=== PATIENT | male | born 2000 | race African-American/Black ===

== ENCOUNTER 2018-09-03 04:09 | Emergency (ER) | payer BC ==
[~2018-09-03] VITALS: Ht 177.8 cm; Wt 115.7 kg
[2018-09-03] MEDS ORDERED: VENTOLIN HFA 1818 GM INH ×2 (04:30→06:14)
[2018-09-03] MEDS ORDERED: FLOVENT HFA 4444 MCG INH (04:31)
[2018-09-03 06:26] VITALS: BP 134/77
== END 2018-09-03 06:26 | disposition home or self-care (01) ==
LOC: ER 04:09
DX: R06.02 Shortness of breath (principal)

== ENCOUNTER 2018-11-15 22:27 | Emergency (ER) | payer BC ==
[~2018-11-15] VITALS: Ht 177.8 cm; Wt 115.2 kg
[~2018-11-15 22:27] MED LIST: FLOVENT HFA 4444 MCG INH; VENTOLIN HFA 1818 GM INH
[2018-11-16 00:31] VITALS: BP 143/55
== END 2018-11-16 00:40 | disposition home or self-care (01) ==
LOC: ER 22:27
DX: S93.492A Sprain of other ligament of left ankle, initial encounter (principal); J45.909 Unspecified asthma, uncomplicated; X58.XXXA Exposure to other specified factors, initial encounter; Y93.67 Activity, basketball; Y92.89 Other specified places as the place of occurrence of the external cause; Y99.8 Other external cause status

== ENCOUNTER 2019-07-01 21:29 | Emergency (ER) | payer BC ==
[~2019-07-01] VITALS: Ht 177.8 cm; Wt 117.9 kg
[2019-07-01 21:42] VITALS: BP 172/65
[2019-07-01] MEDS ORDERED: MOBIC7.5 MG PO (22:08)
--- NOTE | 2019-07-04 12:33 | EKG ---
[facility] [place] [address] ELECTROCARDIOGRAM REPORT Name: RODRIGO CORBIN Room #: DEP [facility]#: [id number] Admission: 07/01/19 Attend Phys: Discharge: 07/01/19 Date of : 89 Report #: [id number] THIS REPORT FOR: cc: Vladislav Edwards,Steven Heck MD [facility] ~ THIS REPORT FOR: //name// [facility] ED Test Date: 2019-07-01 Test Time: 21:39:45 Pat Name: RODRIGO CORBIN Department: Room: Gender: Reference Library Assistant: NIRAV : 2000 Requested By: Aby Cox Order Number: [id number] MD: Steven Chaparro Measurements Intervals [place] Rate: 67 P: 62 MN: 150 QRS: 54 QRSD: 94 T: 1 QT: 376 QTc: 397 Interpretive Statements Sinus rhythm Early repolarization No previous ECG available for comparison Electronically Signed On 07-02-2019 9:38:31 CERTIFIED PHYSICIAN ASSISTANT by Steven Chaparro [email or web address] <ELECTRONICALLY SIGNED> By: Steven Chaparro MD, [facility] 07/02/1940 38 38 Steven Chaparro MD, [facility] /EPI
== END 2019-07-01 22:31 | disposition home or self-care (01) ==
LOC: ER 21:29
DX: R09.1 Pleurisy (principal); J45.909 Unspecified asthma, uncomplicated

== ENCOUNTER 2019-08-03 21:41 | Emergency (ER) | payer BC ==
[~2019-08-03] VITALS: Ht 177.8 cm; Wt 127.0 kg
[~2019-08-03 21:41] MED LIST changes: +MOBIC7.5 MG PO
[2019-08-03] MEDS ORDERED: PREDNISONE 20 M20 MG PO (22:29)
[2019-08-03] MEDS ORDERED: IBUPROFEN 800800 M1 PO (22:29)
[2019-08-03 22:37] VITALS: BP 150/79
== END 2019-08-03 22:55 | disposition home or self-care (01) ==
LOC: ER 21:41
DX: J11.1 Influenza due to unidentified influenza virus with other respiratory manifestations (principal); J45.909 Unspecified asthma, uncomplicated

== ENCOUNTER 2020-02-01 00:12 | Emergency (ER) | payer BC ==
[~2020-02-01] VITALS: Ht 177.8 cm; Wt 127.0 kg
[~2020-02-01 00:12] MED LIST changes: +IBUPROFEN 800800 M1 PO; +PREDNISONE 20 M20 MG PO
[2020-02-01] MEDS ORDERED: PREDNISONE 20 M20 MG PO (01:10)
[2020-02-01 01:14] VITALS: BP 151/75
== END 2020-02-01 01:14 | disposition home or self-care (01) ==
LOC: ER 00:12
DX: J45.901 Unspecified asthma with (acute) exacerbation (principal); Z79.899 Other long term (current) drug therapy; Z91.013 Allergy to seafood; Z91.09 Other allergy status, other than to drugs and biological substances

== ENCOUNTER 2020-09-11 03:47 | Emergency (ER) | payer BC ==
[~2020-09-11] VITALS: Ht 177.8 cm; Wt 127.0 kg
[2020-09-11 03:49] VITALS: BP 186/78
[2020-09-11] MEDS ORDERED: SINGULAIR 10 MG10 M1 PO (03:54)
[2020-09-11] MEDS ORDERED: PROAIR HFA8.5 GM INH (03:54)
[2020-09-11] MEDS ORDERED: PREDNISONE50 MG PO (04:05)
[2020-09-12] MEDS ORDERED: PROAIR HFA8.5 GM INH (11:36)
== END 2020-09-11 04:22 | disposition home or self-care (01) ==
LOC: ER 03:47
DX: J45.901 Unspecified asthma with (acute) exacerbation (principal); R06.00 Dyspnea, unspecified; Z91.013 Allergy to seafood

== ENCOUNTER 2020-09-12 11:02 | Emergency (ER) | payer BC ==
[~2020-09-12] VITALS: Ht 177.8 cm; Wt 127.0 kg
[~2020-09-12 11:02] MED LIST changes: +PREDNISONE50 MG PO; +PROAIR HFA8.5 GM INH; +SINGULAIR 10 MG10 M1 PO
[2020-09-12] MEDS ORDERED: PROAIR HFA8.5 GM INH (11:36)
[2020-09-12 12:04] VITALS: BP 153/58
== END 2020-09-12 12:04 | disposition home or self-care (01) ==
LOC: ER 11:02
DX: J45.901 Unspecified asthma with (acute) exacerbation (principal); Z79.899 Other long term (current) drug therapy; Z91.013 Allergy to seafood; Z91.09 Other allergy status, other than to drugs and biological substances

== ENCOUNTER 2021-04-08 19:46 | Emergency (ER) | payer BC ==
[~2021-04-08] VITALS: Ht 177.8 cm; Wt 125.2 kg
[2021-04-08] MEDS ORDERED: FLOVENT HFA 4444 MCG INH ×2 (19:56→20:59)
[2021-04-08] MEDS ORDERED: PROAIR HFA8.5 GM INH (20:59)
[2021-04-08] MEDS ORDERED: PREDNISONE 20 M20 MG PO (20:59)
[2021-04-08] MEDS ORDERED: ALBUTEROL2.5 MG/0.5 INH (20:59)
[2021-04-08 22:09] VITALS: BP 144/69
== END 2021-04-08 21:25 | disposition home or self-care (01) ==
LOC: ER 19:46
DX: J45.909 Unspecified asthma, uncomplicated (principal); R05.9 Cough, unspecified; F17.200 Nicotine dependence, unspecified, uncomplicated; Z91.09 Other allergy status, other than to drugs and biological substances; Z79.51 Long term (current) use of inhaled steroids; Z79.899 Other long term (current) drug therapy; Z91.013 Allergy to seafood

== ENCOUNTER 2021-04-10 07:07 | Emergency (ER) | payer BC ==
[~2021-04-10] VITALS: Ht 180.3 cm; Wt 126.1 kg
[~2021-04-10 07:07] MED LIST changes: +ALBUTEROL2.5 MG/0.5 INH
[2021-04-10] MEDS ORDERED: NEBULIZER MISCELL (08:46)
[2021-04-10 09:34] VITALS: BP 141/71
== END 2021-04-10 09:35 | disposition home or self-care (01) ==
LOC: ER 07:07
DX: J45.901 Unspecified asthma with (acute) exacerbation (principal); Z20.822 Contact with and (suspected) exposure to COVID-19; Z88.8 Allergy status to other drugs, medicaments and biological substances; Z79.899 Other long term (current) drug therapy